=== PATIENT | male | born 1985 | race African-American/Black ===

== ENCOUNTER 2022-08-04 22:50 | Observation (INO) | payer OTHER ==
[~2022-08-04] VITALS: Ht 188 cm; Wt 135.9 kg
[~2022-08-04 22:50] MED LIST: CLEOCIN HC150 MG/CAP PO; MOTRIN 800800 MG/TAB PO; NO HOME MEDICATIONS; NORCO 325 MG-7.1 TAB PO
[2022-08-04 23:41] LABS: STREP SCREEN NEGATIVE
[2022-08-05] VITALS (11 sets, daily range): BP systolic 159–220; BP diastolic 98–119; PULSE 85–117; TEMP 97.8–98.9
[2022-08-05 00:02] LABS: BASO # 0.1 K/mm3 (0.0-0.2); BASO % 0.4 % (0.0-2.0); EOS # 0.2 K/mm3 (0.0-0.7); EOS % 1.1 % (0.0-4.0); GRAN # 10.8 K/mm3 (1.4-6.5); GRAN % 76.9 % (42.2-75.2); HEMATOCRIT 44.4 % (42.0-52.0); HEMOGLOBIN 14.3 g/dl (13.5-18.0); LYMPH # 1.9 K/mm3 (1.2-3.4); LYMPH % 13.2 % (20.0-51.0); MEAN CELL VOLUME 91 fl (80.0-100.0); MEAN CORPUSCULAR HEMOGLOBIN 29 pg (27-31); MEAN CORPUSCULAR HGB CONC 32 g/dl (33.0-37.0); MEAN PLATELET VOLUME 9.9 fl (7.4-10.4); MONO # 1.1 K/mm3 (0.1-0.6); MONO % 8.2 % (1.7-9.3); PLATELET COUNT 316 K/mm3 (130-400); RED BLOOD COUNT 4.88 M/mm3 (4.20-5.60); REDCELL DISTRIBUTION WIDTH-CV 12.5 % (11.5-14.5)
[2022-08-05 00:17] LABS: ALBUMIN 3.9 gm/dL (3.5-5.0); BILIRUBIN,TOTAL 0.6 mg/dL (0.2-1.2); C-REACTIVE PROTEIN 8.52 mg/dL (0.00-0.50); CALCIUM 9.2 mg/dL (8.4-10.2); CREATININE, serum 1.45 mg/dL (0.72-1.25); POTASSIUM 3.8 mmol/L (3.5-4.5); TOTAL PROTEIN 8.1 gm/dL (6.2-8.1)
--- NOTE | 2022-08-05 08:00 | NUR ---
Pt Ox4, denies pain, continues to be hypertensive, BP improving, 173/98 now. SR per telemetry. Pt reports he is able to swallow, drink, eat this AM. Pain and swelling to throat/neck improved. Continues on IV fluids per order. Soft pallette and tonsils pink with slight edema noted.
--- NOTE | 2022-08-05 09:10 | NUR ---
ALTHEA met with the patient and his , Harini (ph#[phone]), to discuss discharge plan. The patient lives in [place] with his and their son. He reports independence with ADLs and does not have any DME. He provides that he does not have a PCP. He was interested in obtaining a list of local clinics. ALTHEA provided him with that list. He obtains his medications from [facility]. The patient does not have a DPOA-HC and he was not interested in completing one at this time. The patient plans to return home with his family upon discharge. No additional needs at this time. *Discharge plan: home with family*
--- NOTE | 2022-08-05 11:06 | NUR ---
Initial visit: Hat Cleaner stopped by room on rounds. Pt was sitting on side of bed and content. Pt has no needs right now. Hat Cleaner will follow up as needed.
--- NOTE | 2022-08-05 13:00 | NUR ---
Notified Dr. Srinivasan of consult.
--- NOTE | 2022-08-05 13:46 | NUR ---
Rec'd call back from Dr. Srinivasan r/t consult request. Informed of pt admit c/o and current condition and course of tx. Dr. Srinivasan agrees with current tx plan. States to have Dr. Castañeda call him at office with further questions or issues. Notified Dr. Castañeda by phone.
--- NOTE | 2022-08-05 19:52 | NUR ---
Notify Dr. Castañeda BP 190/106. Request PRN hydralazine order. 1st dose given 1743, recheck BP 182/119. Notify Dr. Castañeda, add'l order of hydralazine given at 1832, recheck 174/101. Pt asymptomatic. Information passed on to oncoming RN.
--- NOTE | 2022-08-05 21:48 | NUR ---
SHIFT REPORT FROM PAUL ROMERO. PATIENT IN BED ON ROOM ENTRY. ALERT AND ORIENTED. FAMILY AT BEDSIDE. DENIES PAIN WHEN ASKED. STATES IT ONLY HURTS A LITTLE WHEN HE EATS. DISCUSSED HTN MED CHANGES AND PATIENT IN AGREEANCE. ALL QUESTIONS SOUGHT AND ANSWERED. HS MEDS PER EMAR. DENEIS ADDITIONAL NEEDS. CALL LIGHT IN REACH.
[2022-08-06] VITALS (15 sets, daily range): BP systolic 143–208; BP diastolic 83–131; PULSE 85–101; TEMP 98–98.6; O2SAT 98
--- NOTE | 2022-08-06 00:10 | NUR ---
NOTIFIED BY PCT THAT PATIENTS SYSTOLIC BP WAS 220. NOTIFIED SILVANA AND ORDER FOR 5 MG IV METOPROLOL X3 DOSES AND LISINOPRIL 20 MG. THESE WERE GIVEN WITH AND SYSTOLIC BP ONLY DROPPED TO 187. NOTIFIED SILVANA AND ORDER TO SEND TO ICU. SILVANA ALSO CAME IN TO SPEAK WITH PATIENT AND HELP ANSWER QUESTIONS. REPORT CALLED TO AKIKO ROMERO. PATIENT WALKED DOWN TO ICU BED 4.
--- NOTE | 2022-08-06 01:44 | NUR ---
PT WALKED WITH RN ESCORT DOWN TO ICU BED 4. ALSO AT BEDSIDE. CONNECTED TO ICU MONITORING AND ORIENTED TO ROOM. CARDENE DRIP INITIATED AT 0106, TO THIS POINT HAS BEEN TITRATED UP WITH LITTLE EFFECT. PT ALSO HAD ATIVAN PER ONE TIME ORDER, PT IS NOTABLY UPSET. STATES DOES NOT KNOW WHY A HOSPITAL FULL OF EDUCATED PEOPLE CANNOT FIGURE OUT HOW TO MANAGED HIS BP. EDUCATED PT ON POC, PROCESS OF LEAST INVASIVE MEASURES FIRST, MONITORING, WELL NEW ORDERS FOR CARDIOLOGY CONSULT AND FOLLOW UP. PT HAS SHOWN SOME EASE IN HIS MOOD AT THIS TIME. PT'S SENT HOME WITH CALLING CARD AND UNDERSTANDS VISITOR POLICY. PT ORIGINALLY ADMITTED FOR TONSILITIS, STATES THAT IS MOSTLY RESOLVED AT THIS POINT AND IS HAVING NO COMPLAINTS. WILL CONTINUE TO MONITOR.
[2022-08-06 07:15] LABS: HEMATOCRIT 45.4 % (42.0-52.0); HEMOGLOBIN 14.9 g/dl (13.5-18.0); MEAN CELL VOLUME 89 fl (80.0-100.0); MEAN CORPUSCULAR HEMOGLOBIN 29 pg (27-31); MEAN CORPUSCULAR HGB CONC 33 g/dl (33.0-37.0); MEAN PLATELET VOLUME 10.3 fl (7.4-10.4); PLATELET COUNT 353 K/mm3 (130-400); RED BLOOD COUNT 5.09 M/mm3 (4.20-5.60); REDCELL DISTRIBUTION WIDTH-CV 12.5 % (11.5-14.5)
[2022-08-06 07:39] LABS: CALCIUM 9.3 mg/dL (8.4-10.2); CREATININE, serum 1.18 mg/dL (0.72-1.25); POTASSIUM 4.1 mmol/L (3.5-4.5)
--- NOTE | 2022-08-06 08:15 | NUR ---
Alert and oriented and sitting on edge of bed during assessment. Denies any shortness of air, dizziness, or chest pain. Patient is cooperative with staff and follows commands appropriately. Reviewed plan of care with goal to mangage BP on oral meds and wean off cardene drip. Patient agreeable and verbalized understanding. Wishes to "clean up". Patient steady on feet and and to move independently in room. Assisted to prepare for a sponge bath. Call light left within reach.
--- NOTE | 2022-08-06 09:30 | NUR ---
Received order from cardiology to wean down and turn off cardene drip after administration of cardizem and metoprolol. Will continue to monitor.
--- NOTE | 2022-08-06 09:45 | NUR ---
Automotive Service Writer met with Patient at bedside in ICU to discuss status and discuss discharge planning. Patient transferred to ICU for continued care. Patient reports that his discharge plan continues to be home. SW briefed Patient that SW services will continue through the weekend should he have any concerns.
--- NOTE | 2022-08-06 15:30 | NUR ---
Systolic BP running consistently around 160's. Notified cardiology and will change cardizem from daily to BID.
--- NOTE | 2022-08-06 18:04 | NUR ---
Systolic BP running in the 180's. BP meds given as ordered and PRN hydralazine also administered. Patient denies any chest pain or dizziness or other associated symptoms. Discussed with hospitalist. Will continue on current regime and will not re-start cardene at this time. Ordered to call back if systolic BP maintaining 200 or greater.
--- NOTE | 2022-08-06 19:40 | NUR ---
RECEIVED BEDSIDE SHIFT REPORT FROM HEATHER HARDY. PATIENT IS HAVING SOME ANXIETY. ALL QUESTIONS WERE ANSWERED AND EMOTIONAL SUPPORT WAS PROVIDED. PATIENT'S BLOOD PRESSURE WAS RUNNING HIGH BUT HAS BEEN TRENDING BACK DOWN. CALLED BARBARA DIAMOND FOR ANXIETY MEDICATION. VITALS ARE ALL OTHERWISE STABLE. PATIENT IS SITTING IN CHAIR WITH AT BEDSIDE. NO COMPLAINTS OF PAIN AND CALL LIGHT IS WITHIN REACH.
[2022-08-07] VITALS: BP 160/98; PULSE 84; TEMP 98.2
[2022-08-07 04:00] VITALS: BP 157/98; PULSE 79; TEMP 98
[2022-08-07 05:19] LABS: BASO % 0.1 % (0.0-2.0); EOS # 0.1 K/mm3 (0.0-0.7); EOS % 0.2 % (0.0-4.0); GRAN # 18.3 K/mm3 (1.4-6.5); GRAN % 86.4 % (42.2-75.2); HEMATOCRIT 45.3 % (42.0-52.0); HEMOGLOBIN 14.3 g/dl (13.5-18.0); LYMPH # 1.7 K/mm3 (1.2-3.4); MEAN CELL VOLUME 92 fl (80.0-100.0); MEAN CORPUSCULAR HEMOGLOBIN 29 pg (27-31); MEAN CORPUSCULAR HGB CONC 32 g/dl (33.0-37.0); MEAN PLATELET VOLUME 9.9 fl (7.4-10.4); MONO % 4.7 % (1.7-9.3); PLATELET COUNT 393 K/mm3 (130-400); RED BLOOD COUNT 4.91 M/mm3 (4.20-5.60); REDCELL DISTRIBUTION WIDTH-CV 12.9 % (11.5-14.5)
[2022-08-07 05:32] LABS: CALCIUM 8.9 mg/dL (8.4-10.2); CREATININE, serum 1.25 mg/dL (0.72-1.25); POTASSIUM 4.5 mmol/L (3.5-4.5)
[2022-08-07 09:13] VITALS: BP 165/102; PULSE 85; TEMP 98.5
[2022-08-07 11:21] VITALS: BP 173/103; PULSE 75
--- NOTE | 2022-08-07 11:33 | NUR ---
PT TO BE DISCHARGED.
--- NOTE | 2022-08-07 12:00 | NUR ---
PT LEFT HOSPITAL WITH . PT EDUCATION GIVEN, ALL PAPERS SIGNED, ALL QUESTIONS ANSWERED. L AC INT REMOVED .
[2022-08-07] MEDS ORDERED: CLEOCIN HCL300 MG PO (12:03)
[2022-08-07] MEDS ORDERED: CARDIZEM CD 18180 MG PO (12:04)
[2022-08-07] MEDS ORDERED: LOPRESSOR 550 MG/TAB PO (12:04)
[2022-08-07] MEDS ORDERED: APRESOLINE 25MG25 MG PO (12:04)
[2022-08-07] MEDS ORDERED: ZESTRIL40 MG PO (12:05)
--- NOTE | 2022-08-07 13:25 | NUR ---
Chaplain montelongo and offered support with patient.
== END 2022-08-07 12:00 | disposition home or self-care (01) ==
LOC: COL.ER 22:50 → SURG 08-05 01:55 → ICU 08-06 01:31
PROVIDERS: Hospitalist; Nurse Practitioner; Student in an Organized Health Care Education/Training Program; ADMIT Internal Medicine
DX: A41.9 Sepsis, unspecified organism (principal); J03.90 Acute tonsillitis, unspecified; I16.0 Hypertensive urgency; N17.9 Acute kidney failure, unspecified; Z91.199 Patient's noncompliance with other medical treatment and regimen due to unspecified reason; Z28.310 Unvaccinated for COVID-19
CPT/HCPCS: G0378; J0360; J1100; J2060; J7030; J7050; Q9967

== ENCOUNTER → 2022-12-07 | Outpatient (CLI) | payer OTHER ==
[~2022-12-07] MED LIST changes: +APRESOLINE 25MG25 MG PO; +CARDIZEM CD 18180 MG PO; +CLEOCIN HCL300 MG PO; +LOPRESSOR 550 MG/TAB PO; +ZESTRIL40 MG PO
== END ==
LOC: COL.RAD 11-09 09:45
DX: I12.9 Hypertensive chronic kidney disease with stage 1 through stage 4 chronic kidney disease, or unspecified chronic kidney disease (principal); N18.9 Chronic kidney disease, unspecified; R79.89 Other specified abnormal findings of blood chemistry